=== PATIENT | male | born 1955 | race Caucasian/White ===

== ENCOUNTER 2018-10-11 08:18 | Emergency (ER) | payer MEDICAID, OTHER ==
[2018-10-11] MEDS: ONDANSETRON (ODT) 4 MG TAB ODT (08:58)
[2018-10-11] MEDS: HYDROCODONE/APAP (10/325) TAB PO (08:58)
[2018-10-11] MEDS: LIDOCAINE 1% (MDV) 20 ML INJ INJ (08:59)
[2018-10-11] MEDS: DIPHTH/TET/ACEL PERTUSS (ADULT) 0.5 ML VIAL IM* (08:59)
[2018-10-11] MEDS: LIDOCAINE 1%/EPI 30 ML INJ INJ (09:30)
[2018-10-11] MEDS: LIDOCAINE 1%/EPI (1:100,000) (MDV) 20 ML INJ (09:30)
== END 2018-10-11 12:10 | disposition home or self-care (01) ==
LOC: E/R 08:18
DX: S01.511A Laceration without foreign body of lip, initial encounter (principal); S01.112A Laceration without foreign body of left eyelid and periocular area, initial encounter; S01.81XA Laceration without foreign body of other part of head, initial encounter; F17.210 Nicotine dependence, cigarettes, uncomplicated; Y04.2XXA Assault by strike against or bumped into by another person, initial encounter; Z23 Encounter for immunization
CPT/HCPCS: 12015; 70450; 70486; 90471; 90715; 99284-25

== ENCOUNTER 2018-10-16 10:05 | Emergency (ER) | payer MEDICAID | END 2018-10-16 11:02 | disposition home or self-care (01) | LOC: FTE 10:05 | DX: Z48.02 Encounter for removal of sutures (principal); F17.210 Nicotine dependence, cigarettes, uncomplicated | CPT/HCPCS: 99281; Z7502 ==